=== PATIENT | female | born 1930 | race African-American/Black ===

== ENCOUNTER 2017-04-15 11:32 | Inpatient (IN) | payer MEDICAID, MEDICARE ==
[~2017-04-15] VITALS: Ht 157.5 cm; Wt 57.8 kg
[2017-04-15 12:29] LABS: BASOPHILS % 0.4 % (0.0-2.0); EOSINOPHILS % 0.2 % (0.0-5.0); HEMATOCRIT. 28.5 % (36.0-48.0); HEMOGLOBIN. 9.2 g/dL (12.0-16.0); LYMPHOCYTES % 8.5 % (20.0-50.0); MEAN CORPUSCULAR HEMOGLOBIN 33.8 pg (28.0-32.0); MEAN CORPUSCULAR VOLUME 105.3 fL (81.0-99.0); MONOCYTES % 9.3 % (2.0-8.0); NEUTROPHILS % 81.6 % (40.0-76.0); PLATELET 120 x1000/uL (130-400); RED BLOOD CELL COUNT 2.71 mill/uL (4.2-5.4); RED CELL DISTRIBUTION WIDTH 22.8 % (11.6-14.6)
[2017-04-15 12:37] LABS: INR 1.4; PROTHROMBIN TIME 14.9 sec (9.4-11.6)
[2017-04-15 12:49] LABS: CARBON DIOXIDE 23 mEq/L (21-32); CHLORIDE 98 mEq/L (98-107)
[2017-04-15] MEDS ORDERED: SODIUM CHLORIDE 0.9% 500 ML IV ONE (13:26)
[2017-04-15 13:34] LABS: PLATELET ESTIMATE SLIGHTLY DECREASED
[2017-04-15] MEDS ORDERED: PIPERACILLIN/TAZOBACTAM 3.375GM/50ML PREMIX IV ONE (13:45)
[2017-04-15] MEDS ORDERED: VANCOMYCIN 1 G PREMIX 200 ML IV SCH (13:45)
[2017-04-15] MEDS ORDERED: PIPERACILLIN/TAZ 3.375G PREMIX 50 ML IV ONE (13:55)
[2017-04-15] MEDS ORDERED: LIDOCAINE HCL 1% 20ML VIAL (Pyxis) INJ ONE (14:23)
[2017-04-15] MEDS ORDERED: SODIUM BICARBONATE 4% (2.4MEQ) 5ML VIAL IV ONE (14:24)
[2017-04-15] MEDS ORDERED: HEPARIN SODIUM 1,000 UNIT/1ML VIAL IV SCH (14:30)
[2017-04-15 15:31] LABS: HEPATITIS B SURFACE ANTIGEN NEGATIVE
[2017-04-15 15:41] LABS: HEPATITIS B CORE AB IGM NEGATIVE
[2017-04-15 16:01] LABS: HEPATITIS A AB IGM NEGATIVE (NEGATIVE)
[2017-04-15] MEDS ORDERED: GUAIFENESIN 200MG/10ML SUGAR FREE UDC PO PRN (19:45)
[2017-04-15] MEDS ORDERED: CLONIDINE 0.1MG TABLET PO PRN (19:45)
[2017-04-15] MEDS ORDERED: ONDANSETRON HCL 4MG/2ML VIAL IV PRN (19:45)
[2017-04-15] MEDS ORDERED: DIPHENHYDRAMINE 50MG/ML VIAL IV PRN (19:45)
[2017-04-15] MEDS ORDERED: DOCUSATE SODIUM 100MG CAPSULE PO PRN (19:45)
[2017-04-15] MEDS ORDERED: IPRATROPIUM/ALBUTEROL 0.5-3(2.5)MG/3ML NEB INH PRN (19:45)
[2017-04-15 20:00] VITALS: BP 117/54
[2017-04-15 21:50] VITALS: BP 117/54
[2017-04-15] MEDS ORDERED: DEXTROSE 50% WATER 50ML SYRINGE IV PRN (22:30)
[2017-04-16] VITALS: BP 96/54
[2017-04-16] MEDS: SODIUM CHLORIDE 0.9% INJ 3ML FLUSH IVF SCH ×4 (00:41→21:15)
[2017-04-16 04:00] VITALS: BP 109/78
[2017-04-16] MEDS: EPOETIN ALFA 4000UNITS/ML VIAL SUBCUT SCH (06:47)
[2017-04-16] MEDS: BLOOD SUGAR DIAGNOSTIC STRIP TEST SCH ×4 (07:40→21:15)
[2017-04-16 08:00] VITALS: BP 120/69
[2017-04-16] MEDS: INSULIN LISPRO 100 UNITS/ML SUBCUT SCH ×4 (08:10→21:00)
[2017-04-16 11:40] LABS: HEMOGLOBIN. 10.1 g/dL (12.0-16.0); MEAN CORPUSCULAR HEMOGLOBIN 33.6 pg (28.0-32.0); MEAN CORPUSCULAR VOLUME 103.7 fL (81.0-99.0); MEAN PLATELET VOLUME 9.3 fl (7.4-10.4); PLATELET 124 x1000/uL (130-400); RED BLOOD CELL COUNT 2.99 mill/uL (4.2-5.4); RED CELL DISTRIBUTION WIDTH 22.6 % (11.6-14.6)
[2017-04-16 12:00] VITALS: BP 109/65
[2017-04-16 12:12] LABS: CARBON DIOXIDE 24 mEq/L (21-32); CHLORIDE 96 mEq/L (98-107); HDL CHOLESTEROL 42 mg/dL (40-59); LDL CHOLESTEROL 121 mg/dL (5-100); PHOSPHORUS 7.4 mg/dL (2.5-4.9)
[2017-04-16 13:21] LABS: PLATELET ESTIMATE SLIGHTLY DECREASED
[2017-04-16 16:00] VITALS: BP 102/57
[2017-04-16] MEDS ORDERED: SODIUM CHLORIDE 0.45% 1,000 ML IV SCH (19:15)
[2017-04-16 20:00] VITALS: BP 105/62
[2017-04-16 20:51] LABS: AMMONIA < 10 uMol/L (<32)
[2017-04-16 20:55] LABS: INR 1.7; PARTIAL THROMBOPLASTIN TIME 39.6 sec (23.4-31.0); PROTHROMBIN TIME 18.3 sec (9.4-11.6)
[2017-04-16 21:30] LABS: TROPONIN I 0.8 ng/mL (0.00-0.04)
[2017-04-17] VITALS (21 sets, daily range): BP systolic 96–140; BP diastolic 39–82
[2017-04-17] MEDS: SODIUM CHLORIDE 0.9% INJ 3ML FLUSH IVF SCH ×3 (06:03→21:50)
[2017-04-17] MEDS: BLOOD SUGAR DIAGNOSTIC STRIP TEST SCH ×5 (07:40→21:05)
[2017-04-17] MEDS: INSULIN LISPRO 100 UNITS/ML SUBCUT SCH ×4 (07:58→21:14)
[2017-04-17 08:11] LABS: BASOPHILS % 0.6 % (0.0-2.0); EOSINOPHILS % 1.4 % (0.0-5.0); HEMATOCRIT. 32.6 % (36.0-48.0); HEMOGLOBIN. 10.1 g/dL (12.0-16.0); LYMPHOCYTES % 10.5 % (20.0-50.0); MEAN CORPUSCULAR HEMOGLOBIN 33.3 pg (28.0-32.0); MEAN CORPUSCULAR VOLUME 107.2 fL (81.0-99.0); MONOCYTES % 6.1 % (2.0-8.0); NEUTROPHILS % 81.4 % (40.0-76.0); RED BLOOD CELL COUNT 3.04 mill/uL (4.2-5.4); RED CELL DISTRIBUTION WIDTH 23.1 % (11.6-14.6)
[2017-04-17 09:04] LABS: CARBON DIOXIDE 18 mEq/L (21-32); CHLORIDE 96 mEq/L (98-107)
[2017-04-17 09:26] LABS: PHOSPHORUS 7.9 mg/dL (2.5-4.9)
[2017-04-17] MEDS ORDERED: HEPARIN SODIUM 1,000 UNIT/1ML VIAL IV SCH (09:30)
[2017-04-17] MEDS ORDERED: DIGOXIN 500MCG/2ML AMP IV SCH (12:30)
[2017-04-17] MEDS ORDERED: PHYTONADIONE 10MG/ML AMP SUBCUT SCH (12:50)
[2017-04-17 13:28] LABS: HDL CHOLESTEROL 31 mg/dL (40-59); LDL CHOLESTEROL 139 mg/dL (5-100); T4 FREE 1.24 ng/dL (0.76-1.46)
[2017-04-17] MEDS: TOBRAMYCIN/DEXAMETH 0.1/0.3% OPHTH SUSP 2.5ML BOTHEYE SCH (15:27)
[2017-04-17] MEDS: NITROGLYCERIN 0.4MG TABLET SL SL PRN ×2 (15:36→19:52)
[2017-04-17 15:37] LABS: CREATINE KINASE MB FRACTION 1.6 ng/mL (0.5-3.6)
[2017-04-17 15:49] LABS: TROPONIN I 0.43 ng/mL (0.00-0.04)
[2017-04-17 16:23] LABS: BG BASE EXCESS -3.7 mmol/L (-2.0-2.0); BG CARBOXYHEMOGLOBIN 0.7 % (0.5-1.5); BG DEOXYHEMOGLOBIN 3.6 % (0.0-5.0); BG FRACTION INSPIRED OXYGEN 100; BG HCO3 ACT 21.3 mmol/L (22.0-26.0); BG METHEMOGLOBIN 0.3 % (0.0-1.5); BG OXYGEN SATURATION 96.4 % (92.0-98.5); BG OXYHEMOGLOBIN 95.4 % (94.0-97.0); BG PCO2 38.3 mmHg (35.0-45.0); BG PH 7.363 (7.350-7.450); BG PO2 93.2 mmHg (75.0-100.0); BG SAMPLE SITE RIGHT BRACHIAL; BG TOTAL HEMOGLOBIN 10.6 g/dL (12.0-18.0); BG VENT MODE MASK - NRB
[2017-04-17 18:17] LABS: HEMATOCRIT 29.3 % (36.0-48.0); HEMOGLOBIN 9.4 g/dL (12.0-16.0); MEAN CORPUSCULAR HEMOGLOBIN 33.6 pg (28.0-32.0); MEAN CORPUSCULAR VOLUME 104.5 fL (81.0-99.0); PLATELET 104 x1000/uL (130-400); RED CELL DISTRIBUTION WIDTH 22.5 % (11.6-14.6)
[2017-04-17 18:26] LABS: INR 1.5; PARTIAL THROMBOPLASTIN TIME 36.4 sec (23.4-31.0); PROTHROMBIN TIME 15.7 sec (9.4-11.6)
[2017-04-17 18:49] LABS: TROPONIN I 0.4 ng/mL (0.00-0.04)
[2017-04-17] MEDS ORDERED: AMIODARONE HCL 150 MG in DEXT 5% WATER 100 ML IV NR (21:00)
[2017-04-17] MEDS ORDERED: AMIODARONE HCL 900 MG in DEXT 5% WATER 482 ML IV PRN (21:15)
[2017-04-17 23:17] LABS: CREATINE KINASE MB FRACTION 1.4 ng/mL (0.5-3.6); TROPONIN I 0.37 ng/mL (0.00-0.04)
[2017-04-18] VITALS (72 sets, daily range): BP systolic 98–143; BP diastolic 43–82
[2017-04-18] MEDS: TOBRAMYCIN/DEXAMETH 0.1/0.3% OPHTH SUSP 2.5ML BOTHEYE SCH ×3 (00:27→23:39)
[2017-04-18 06:02] LABS: INR 1.6; PROTHROMBIN TIME 16.1 sec (9.4-11.6)
[2017-04-18 06:03] LABS: BASOPHILS % 0.3 % (0.0-2.0); EOSINOPHILS % 0.5 % (0.0-5.0); HEMOGLOBIN. 9.6 g/dL (12.0-16.0); MEAN CORPUSCULAR HEMOGLOBIN 33.8 pg (28.0-32.0); MEAN CORPUSCULAR VOLUME 105.5 fL (81.0-99.0); MEAN PLATELET VOLUME 9.4 fl (7.4-10.4); MONOCYTES % 9.9 % (2.0-8.0); NEUTROPHILS % 79.3 % (40.0-76.0); PLATELET 97 x1000/uL (130-400); RED BLOOD CELL COUNT 2.84 mill/uL (4.2-5.4); RED CELL DISTRIBUTION WIDTH 22.5 % (11.6-14.6)
[2017-04-18 06:25] LABS: PHOSPHORUS 6.1 mg/dL (2.5-4.9)
[2017-04-18 06:29] LABS: TROPONIN I 0.39 ng/mL (0.00-0.04)
[2017-04-18] MEDS: BLOOD SUGAR DIAGNOSTIC STRIP TEST SCH ×4 (08:09→21:37)
[2017-04-18] MEDS: INSULIN LISPRO 100 UNITS/ML SUBCUT SCH ×4 (08:10→21:00)
[2017-04-18] MEDS: METOPROLOL TARTRATE 25MG TABLET PO SCH ×2 (08:13→21:36)
[2017-04-18] MEDS ORDERED: SODIUM POLYSTYRENE SULFONATE 15 G/60 ML BOT PO NR (09:30)
[2017-04-18] MEDS ORDERED: AMIODARONE HCL 900 MG in DEXT 5% WATER 482 ML IV PRN (10:00)
[2017-04-18] MEDS: SEVELAMER CARBONATE 800 MG TABLET PO SCH ×2 (13:20→18:53)
[2017-04-18] MEDS: SODIUM CHLORIDE 0.9% INJ 3ML FLUSH IVF SCH ×2 (14:00→22:28)
[2017-04-18] MEDS: EPOETIN ALFA 4000UNITS/ML VIAL SUBCUT SCH (22:28)
[2017-04-19] VITALS (25 sets, daily range): BP systolic 96–131; BP diastolic 37–78
[2017-04-19] MEDS: SODIUM CHLORIDE 0.9% INJ 3ML FLUSH IVF SCH ×3 (05:36→21:52)
[2017-04-19 06:11] LABS: BASOPHILS % 0.5 % (0.0-2.0); EOSINOPHILS % 1.9 % (0.0-5.0); HEMATOCRIT. 29.6 % (36.0-48.0); HEMOGLOBIN. 9.4 g/dL (12.0-16.0); LYMPHOCYTES % 14.3 % (20.0-50.0); MEAN CORPUSCULAR HEMOGLOBIN 33.8 pg (28.0-32.0); MEAN CORPUSCULAR VOLUME 106.3 fL (81.0-99.0); MEAN PLATELET VOLUME 9.5 fl (7.4-10.4); MONOCYTES % 9.5 % (2.0-8.0); NEUTROPHILS % 73.8 % (40.0-76.0); PLATELET 81 x1000/uL (130-400); RED BLOOD CELL COUNT 2.78 mill/uL (4.2-5.4); RED CELL DISTRIBUTION WIDTH 22.3 % (11.6-14.6)
[2017-04-19 06:13] LABS: INR 1.4; PROTHROMBIN TIME 14.5 sec (9.4-11.6)
[2017-04-19 06:31] LABS: CARBON DIOXIDE 22 mEq/L (21-32); CHLORIDE 97 mEq/L (98-107); PHOSPHORUS 6.9 mg/dL (2.5-4.9)
[2017-04-19] MEDS: BLOOD SUGAR DIAGNOSTIC STRIP TEST SCH ×4 (07:50→21:00)
[2017-04-19] MEDS: INSULIN LISPRO 100 UNITS/ML SUBCUT SCH ×4 (08:20→21:00)
[2017-04-19] MEDS: METOPROLOL TARTRATE 25MG TABLET PO SCH ×2 (09:00→21:46)
[2017-04-19] MEDS: LOSARTAN POTASSIUM 25 MG TABLET PO SCH (09:00)
[2017-04-19] MEDS: SEVELAMER CARBONATE 800 MG TABLET PO SCH ×3 (09:09→19:10)
[2017-04-19] MEDS ORDERED: HEPARIN SODIUM 1,000 UNIT/1ML VIAL IV SCH (10:15)
[2017-04-19] MEDS: TOBRAMYCIN/DEXAMETH 0.1/0.3% OPHTH SUSP 2.5ML BOTHEYE SCH (12:16)
[2017-04-19] MEDS: EPOETIN ALFA 4000UNITS/ML VIAL SUBCUT SCH (22:39)
[2017-04-20] VITALS (24 sets, daily range): BP systolic 88–118; BP diastolic 40–71
[2017-04-20] MEDS: TOBRAMYCIN/DEXAMETH 0.1/0.3% OPHTH SUSP 2.5ML BOTHEYE SCH ×2 (00:33→12:53)
[2017-04-20 06:13] LABS: BASOPHILS % 0.6 % (0.0-2.0); EOSINOPHILS % 3.3 % (0.0-5.0); HEMATOCRIT. 29.1 % (36.0-48.0); HEMOGLOBIN. 9.4 g/dL (12.0-16.0); LYMPHOCYTES % 11.1 % (20.0-50.0); MEAN CORPUSCULAR HEMOGLOBIN 34.1 pg (28.0-32.0); MEAN CORPUSCULAR VOLUME 105.9 fL (81.0-99.0); MEAN PLATELET VOLUME 9.4 fl (7.4-10.4); MONOCYTES % 11.2 % (2.0-8.0); NEUTROPHILS % 73.8 % (40.0-76.0); PLATELET 93 x1000/uL (130-400); RED BLOOD CELL COUNT 2.75 mill/uL (4.2-5.4); RED CELL DISTRIBUTION WIDTH 22.8 % (11.6-14.6)
[2017-04-20] MEDS: SODIUM CHLORIDE 0.9% INJ 3ML FLUSH IVF SCH ×3 (06:28→22:00)
[2017-04-20 06:52] LABS: CARBON DIOXIDE 28 mEq/L (21-32); CHLORIDE 99 mEq/L (98-107); PHOSPHORUS 5.3 mg/dL (2.5-4.9)
[2017-04-20] MEDS: INSULIN LISPRO 100 UNITS/ML SUBCUT SCH ×4 (07:53→21:00)
[2017-04-20] MEDS: BLOOD SUGAR DIAGNOSTIC STRIP TEST SCH ×4 (07:53→21:28)
[2017-04-20] MEDS: SEVELAMER CARBONATE 800 MG TABLET PO SCH ×3 (08:19→17:54)
[2017-04-20] MEDS: METOPROLOL TARTRATE 25MG TABLET PO SCH ×2 (09:40→21:00)
[2017-04-20] MEDS: LOSARTAN POTASSIUM 25 MG TABLET PO SCH (09:40)
[2017-04-20] MEDS: EPOETIN ALFA 4000UNITS/ML VIAL SUBCUT SCH ×2 (21:00)
[2017-04-21] VITALS (12 sets, daily range): BP systolic 93–118; BP diastolic 33–63
[2017-04-21] MEDS: TOBRAMYCIN/DEXAMETH 0.1/0.3% OPHTH SUSP 2.5ML BOTHEYE SCH ×2 (01:25→17:16)
[2017-04-21] MEDS: BLOOD SUGAR DIAGNOSTIC STRIP TEST SCH ×3 (06:00→16:50)
[2017-04-21] MEDS: SODIUM CHLORIDE 0.9% INJ 3ML FLUSH IVF SCH (06:00)
[2017-04-21] MEDS: INSULIN LISPRO 100 UNITS/ML SUBCUT SCH ×3 (06:02→16:52)
[2017-04-21 07:25] LABS: BASOPHILS % 0.5 % (0.0-2.0); EOSINOPHILS % 2.4 % (0.0-5.0); HEMATOCRIT. 31.3 % (36.0-48.0); LYMPHOCYTES % 12.9 % (20.0-50.0); MEAN CORPUSCULAR VOLUME 105.9 fL (81.0-99.0); MEAN PLATELET VOLUME 9.3 fl (7.4-10.4); MONOCYTES % 9.6 % (2.0-8.0); NEUTROPHILS % 74.6 % (40.0-76.0); PLATELET 108 x1000/uL (130-400); RED BLOOD CELL COUNT 2.95 mill/uL (4.2-5.4); RED CELL DISTRIBUTION WIDTH 22.6 % (11.6-14.6)
[2017-04-21] MEDS: SEVELAMER CARBONATE 800 MG TABLET PO SCH ×3 (07:57→17:13)
[2017-04-21 08:00] LABS: PHOSPHORUS 6.6 mg/dL (2.5-4.9)
[2017-04-21] MEDS: LOSARTAN POTASSIUM 25 MG TABLET PO SCH (09:00)
[2017-04-21] MEDS: METOPROLOL TARTRATE 25MG TABLET PO SCH (09:00)
[2017-04-21] MEDS ORDERED: METO25TA6 PO (12:16)
[2017-04-21] MEDS ORDERED: LOSA25TA3 PO (12:16)
[2017-04-21] MEDS ORDERED: SEVE800T8 PO (19:48)
[2017-04-21] MEDS ORDERED: NEPVIT PO (19:48)
== END 2017-04-21 20:20 | disposition home or self-care (01) | DRG 871 ==
LOC: ER 11:53 → 7WST 13:50 → EDBEDREQ 13:53 → EDBEDREQTM 13:53 → EDBEDREQSVC 13:53 → CANRESERV 19:54 → ENRESERV 19:54 → MICUSO 04-17 16:21 → CVICU 04-17 16:36 → 3WST 04-20 14:00
PROVIDERS: ADMIT Family Medicine; ATTEND Family Medicine
PROC: 02HV33Z Insertion of Infusion Device into Superior Vena Cava, Percutaneous Approach (ICD-10-PCS; principal; 2017-04-15)
PROC: B5181ZA Fluoroscopy of Superior Vena Cava using Low Osmolar Contrast, Guidance (ICD-10-PCS; 2017-04-15)
PROC: B548ZZA Ultrasonography of Superior Vena Cava, Guidance (ICD-10-PCS; 2017-04-15)
DX: A41.9 Sepsis, unspecified organism (principal); K72.00 Acute and subacute hepatic failure without coma; I13.2 Hypertensive heart and chronic kidney disease with heart failure and with stage 5 chronic kidney disease, or end stage renal disease; I47.2 Ventricular tachycardia; I48.1 Persistent atrial fibrillation; N18.6 End stage renal disease; E11.22 Type 2 diabetes mellitus with diabetic chronic kidney disease; E11.51 Type 2 diabetes mellitus with diabetic peripheral angiopathy without gangrene; I45.81 Long QT syndrome; I42.9 Cardiomyopathy, unspecified; B17.9 Acute viral hepatitis, unspecified; G51.0 Bell's palsy; F03.90 Unspecified dementia, unspecified severity, without behavioral disturbance, psychotic disturbance, mood disturbance, and anxiety; I50.9 Heart failure, unspecified; M10.9 Gout, unspecified; Z99.2 Dependence on renal dialysis; D63.8 Anemia in other chronic diseases classified elsewhere; E78.5 Hyperlipidemia, unspecified; F32.9 Major depressive disorder, single episode, unspecified; I35.0 Nonrheumatic aortic (valve) stenosis; Z86.73 Personal history of transient ischemic attack (TIA), and cerebral infarction without residual deficits; N28.1 Cyst of kidney, acquired; Z90.49 Acquired absence of other specified parts of digestive tract; T42.6X5A Adverse effect of other antiepileptic and sedative-hypnotic drugs, initial encounter; T50.4X5A Adverse effect of drugs affecting uric acid metabolism, initial encounter; T37.0X5A Adverse effect of sulfonamides, initial encounter; B19.20 Unspecified viral hepatitis C without hepatic coma; H66.90 Otitis media, unspecified, unspecified ear; I73.9 Peripheral vascular disease, unspecified; J44.9 Chronic obstructive pulmonary disease, unspecified
CPT/HCPCS: 36415; 36569; 36600; 71010; 74181; 76700; 76937; 77001; 80048; 80053; 80061; 80076; 82140; 82248; 82375; 82550; 82553; 82805; 82962; 83036; 83605; 83735; 83880; 84100; 84132; 84439; 84443; 84484; 85025; 85027; 85379; 85610; 85730; 86705; 86709; 86803; 87040; 87340; 93005; 93306; 93970; 96365; 96366; 96367; 96368; 99291; A6261; C1725; J0282; J0885; J1160; J1644; J1815; J3370; J3430; J3490; J7030; J7050; J7060